=== PATIENT | female | born 1990 | race Caucasian/White ===

== ENCOUNTER 2016-11-25 11:21 | Emergency (ER) | payer BC ==
[~2016-11-25] VITALS: Ht 154.9 cm; Wt 60.7 kg
[2016-11-25 11:24] VITALS: TEMP 36.4; Ht 154.9 cm; Wt 60.7 kg
[2016-11-25] MEDS ORDERED: ONDANSETRON INJ 2 MG/ML 2 ML VIAL IV STA (12:25)
[2016-11-25] MEDS ORDERED: SODIUM CHLORIDE 0.9% 1000ML 1,000 ML IV STA (12:25)
[2016-11-25] MEDS ORDERED: SERT50TA PO (12:43)
[2016-11-25] MEDS ORDERED: BCPILLS PO (12:43)
[2016-11-25 12:45] VITALS: O2SAT 98
[2016-11-25 12:59] LABS: BASO % 0.2 %; BASO ABS # 0.02 K/uL (0-0.2); COMPLETE YES; EOS % 0.3 %; HEMATOCRIT 41.9 % (37-47); IG% 0.2 %; LYMPH % 14.9 %; LYMPH ABS # 1.69 K/uL (1.2-3.4); MEAN CELL VOLUME 86.4 fL (80-100); MEAN CORPUSCULAR HEMOGLOBIN 29.7 pg (25-34); MEAN CORPUSCULAR HGB CONC 34.4 g/dl (32-36); MEAN PLATELET VOLUME 10.1 fL (7.4-10.4); MONO % 2.8 %; NEUT % 81.6 %; PLATELET COUNT 280 K/uL (130-400); RED BLOOD COUNT 4.85 M/uL (4.2-5.4); WHITE BLOOD COUNT 11.31 K/uL (4.8-10.8)
[2016-11-25 13:08] LABS: PROTHROMBIN TIME (PATIENT) 10.7 SECONDS (9.0-12.0)
[2016-11-25 13:17] LABS: BUN/CREATININE RATIO 21.5 (10-20); CALCIUM 8.1 mg/dl (8.5-10.1); CREATININE 0.62 mg/dl (0.60-1.20); POTASSIUM 3.9 mmol/L (3.5-5.1)
[2016-11-25 13:27] LABS: THYROID STIMULATING HORMONE 0.71 uIu/ml (0.300-4.500)
[2016-11-25 13:28] LABS: PREG INTERNAL NEGATIVE QC NEG CLEAR BACKGROUND; PREG INTERNAL POSITIVE QC POS CONTROL LINE
[2016-11-25 13:59] VITALS: BP 110/64; PULSE 84; O2SAT 98
[2016-11-25 14:02] LABS: LYME DISEASE AB IGG NEG (NEG); LYME DISEASE AB IGM NEG (NEG)
[2016-11-25] MEDS ORDERED: ONDA4TAB10 SL (14:14)
--- NOTE | 2016-11-25 19:43 | EMERGENCY ROOM VISIT NOTE ---
History Report prepared by Meg: Lilli Sanchez Under the Supervision of: Dr. Manuel Silva M.D. First contact with patient: 12:15 Chief Complaint: VOMITING Stated Complaint: VOMITING UP SOMETHING LOOKS LIKE TAPEWORM, NAUSEA Nursing Triage Summary: Pt reports she has not been feeling well for weeks. Last night she had [place] food with red wine and wasn't feeling well after. This morning she woke up and had diarrhea and then vomited what she thought was "a worm." Pt brought emesis with her and it appears to be undigested [place] food History of Present Illness The patient is a 26 year old female who presents to the Emergency Room with complaints of persistent dizziness over the past 3 weeks. The patient notes that nothing seems to make the dizziness better or worse. She also reports feeling fatigued and unlike herself. She was seen at [facility] for her symptoms in addition to a week of diarrhea and was supposed to have blood work, but hasn't gotten it yet. Yesterday, the patient slept all day and then went to eat [place] food with friends. She had a couple of glasses of wine at dinner as well, but left early because she was not feeling well. This morning, the patient had an episode of diarrhea. She also had several episodes of dry heaving. During one episode of dry heaving, a worm-appearing particle came up. The patient is concerned that this could be some type of worm although it could also be a maldonado sprout. There was also some blood that came up during her episodes of dry heaving. The patient has had some cold-like symptoms over the past week or so. She has noticed small amounts of blood coming out of her mouth when coughing and out of her nose when she blows her nose. Over the past year, the patient has had intermittent episodes of shortness of breath which seem to occur when she is under stress and anxious. She had her thyroid function tested this summer which was normal. She has not had any episodes of shortness of breath since her fatigue and dizziness stated 3 weeks ago. She has not had any recent foreign travel. Denies drinking stream water. Denies fever, chest pain, tick bites, rashes, or other complaints. The patient does not get menstrual periods often due to her control pill, which she has consulted with her commercial property manager about. She is sexually active but does not believe that she is . She has not had a test. Source of History: patient Onset: 3 weeks ago Position: other (global) Quality: other (dizzness) Timing: other (persistent) Modifying Factors (Worsening): other (none) Modifying Factors (Relieving): other (none) Associated Symptoms: + SOB, + diarrhea, + fatigue, + vomiting, No chest pain , No fevers, No rash Review of Systems See HPI for pertinent positives & negatives. A total of 10 systems reviewed and were otherwise negative. Past Medical & Surgical Medical Problems: (1) No Known Active Medical Problems Family History Cancer Diabetes mellitus Heart disease Hypertension Lung disease Social History Smoking Status: Never Smoker Smokeless Tobacco Use: No Alcohol Use: occasionally Marital Status: single Housing Status: lives alone Occupation Status: [employer] student Current/Historical Medications Scheduled Control Pills ( Control Pills), 1 TAB PO DAILY Ondasetron Odt (Zofran Odt), 4 MG SL Q6H Sertraline (Zoloft), 50 MG PO DAILY Allergies Coded Allergies: No Known Allergies (Unverified , 11/25/16) Physical Exam Vital Signs Date Time Temp Pulse Resp B/P Pulse Ox O2 Delivery O2 Flow Rate FiO2 11/25/16 13:59 84 16 110/64 98 Room Air 11/25/16 13:27 81 11/25/16 12:45 98 Room Air 11/25/16 11:24 36.4 102 18 119/80 96 Room Air Physical Exam Constitutional: Vital signs reviewed. Eyes: Pupils are equal round reactive to light. Conjunctiva are noninjected. ENT: Pharynx is clear without erythema or exudate. Mucous membranes are dry. Neck supple without meningeal signs. No sinus tenderness. Respiratory: Clear to auscultation bilaterally. Breath sounds are equal bilaterally. Cardiovascular: Regular rate and rhythm. No rubs or gallops. GI: Soft, nondistended and nontender. Bowel sounds are present. Musculoskeletal: No peripheral edema. No lower extremity tenderness. Integumentary: No cyanosis. Neurological: The patient is awake and alert. No focal deficits. Psychiatric: Slightly anxious affect. Medical Decision & Procedures Laboratory Results 11/25/16 12:46 Red Blood Count 4.85, Mean Corpuscular Volume 86.4, Mean Corpuscular Hemoglobin 29.7, Mean Corpuscular Hemoglobin Concent 34.4, Mean Platelet Volume 10.1, Neutrophils (%) (Auto) 81.6, Lymphocytes (%) (Auto) 14.9, Monocytes (%) (Auto) 2.8, Eosinophils (%) (Auto) 0.3, Basophils (%) (Auto) 0.2, Neutrophils # (Auto) 9.23, Lymphocytes # (Auto) 1.69, Monocytes # (Auto) 0.32, Eosinophils # (Auto) 0.03, Basophils # (Auto) 0.02 11/25/16 12:46 Test 11/25/16 12:46 11/25/16 12:52 White Blood Count 11.31 K/uL (4.8-10.8) Red Blood Count 4.85 M/uL (4.2-5.4) Hemoglobin 14.4 g/dL (12.0-16.0) Hematocrit 41.9 % (37-47) Mean Corpuscular Volume 86.4 fL (80-100) Mean Corpuscular Hemoglobin 29.7 pg (25-34) Mean Corpuscular Hemoglobin Concent 34.4 g/dl (32-36) Platelet Count 280 K/uL (130-400) Mean Platelet Volume 10.1 fL (7.4-10.4) Neutrophils (%) (Auto) 81.6 % Lymphocytes (%) (Auto) 14.9 % Monocytes (%) (Auto) 2.8 % Eosinophils (%) (Auto) 0.3 % Basophils (%) (Auto) 0.2 % Neutrophils # (Auto) 9.23 K/uL (1.4-6.5) Lymphocytes # (Auto) 1.69 K/uL (1.2-3.4) Monocytes # (Auto) 0.32 K/uL (0.11-0.59) Eosinophils # (Auto) 0.03 K/uL (0-0.5) Basophils # (Auto) 0.02 K/uL (0-0.2) RDW Standard Deviation 36.6 fL (36.4-46.3) RDW Coefficient of Variation 11.6 % (11.5-14.5) Immature Granulocyte % (Auto) 0.2 % Immature Granulocyte # (Auto) 0.02 K/uL (0.00-0.02) Prothrombin Time 10.7 SECONDS (9.0-12.0) Prothromb Time International Ratio 1.0 (0.9-1.1) Activated Partial Thromboplast Time 25.9 SECONDS (21.0-31.0) Partial Thromboplastin Ratio 1.0 Anion Gap 10.0 mmol/L (3-11) Est Creatinine Clear Calc Drug Dose 115.9 ml/min Estimated GFR () 145.3 Estimated GFR (Non- 125.3 BUN/Creatinine Ratio 21.5 (10-20) Calcium Level 8.1 mg/dl (8.5-10.1) Total Bilirubin 0.3 mg/dl (0.2-1) Direct Bilirubin 0.1 mg/dl (0-0.2) Aspartate Amino Transf (AST/SGOT) 16 U/L (15-37) Alanine Aminotransferase (ALT/SGPT) 23 U/L (12-78) Alkaline Phosphatase 58 U/L (45-117) Total Protein 7.7 gm/dl (6.4-8.2) Albumin 3.8 gm/dl (3.4-5.0) Thyroid Stimulating Hormone (TSH) 0.710 uIu/ml (0.300-4.500) Free Thyroxine 0.92 ng/dl (0.80-1.60) Human Chorionic Gonadotropin, Qual NEG (NEG) Lyme Disease IgG Antibody NEG (NEG) Lyme Disease IgM Antibody NEG (NEG) Monoscreen NEG (NEG) Bedside D-Dimer 144 ng/mlFEU (0-450) Laboratory results as reviewed by me. Medications Administered Medications (Trade) Dose Ordered Sig/Azalia Route Start Time Stop Time Status Last Admin Dose Admin Sodium Chloride (Nss 1000ml) 1,000 ml @ 999 mls/hr Q1H1M STAT IV 11/25/16 12:25 11/25/16 13:25 DC 11/25/16 13:17 999 MLS/HR Ondansetron HCl (Zofran Inj) 4 mg NOW STAT IV 11/25/16 12:25 11/25/16 12:28 DC 11/25/16 13:17 4 MG ECG Indication: other (dizziness) Rate (beats per minute): 65 Rhythm: normal sinus Findings: no acute ischemic change, no ectopy, other (rightward axis) ED Course 1218: The patient was evaluated in room B12. A complete history and physical exam was performed. 1225: Ordered Zofran 4 mg IV, NSS 1000 ml @ 999 mls/hr IV. 1354: I reassessed the patient and talked to her about test results. She said that she is feeling better after the Zofran and fluids. The patient will be discharged home. Medical Decision This is a 26-year-old female who presents with generalized weakness for 3 weeks and developed vomiting and diarrhea last night. Differential diagnosis includes metabolic derangement, anemia, hypothyroidism, dehydration, gastroenteritis. I did perform a limited focused review of portions of the patient's old chart on the electronic medical record. The patient has had no recent pertinent visits to this hospital. I did evaluate the patient as noted above. The patient has had 3 weeks of generalized weakness. It is unclear what is causing these symptoms. She denies having any chest pain but does have some shortness of breath which she attributes to anxiety. The shortness of breath has been sporadic for 6 months. She also complains of vomiting up what looks like a warm. I did examine what she threw up under magnification and it appears to be an undigested maldonado sprout. IV access was established. I did order and personally review the patient's 12-lead EKG as described above. I did order and review the patient's blood work as noted in the electronic medical record. Her white blood cell count is slightly elevated likely secondary to the vomiting. She is not anemic. TFTs are unremarkable. D-dimer testing is negative. I did have a low pretest probability for PE and therefore I will not pursue this further with a negative d-dimer. Lyme Testing was negative.Monospot is negative. I did treat the patient with normal saline IV and Zofran IV. I did reassess the patient. She is feeling better at this time. I did discuss the test results with her. I did recommend she follow with [facility] for further evaluation of her generalized weakness. Her vomiting and diarrhea are likely a viral gastroenteritis. She was discharged with a prescription for Zofran and given return instructions as outlined below. Impression Primary Impression: Vomiting and diarrhea Additional Impressions: Dizziness URI (upper respiratory infection) Departure Information Dispostion Home / Self-Care Prescriptions Ondasetron Odt (ZOFRAN ODT) 4 Mg Tab 4 MG SL Q6H for Nausea, #10 TAB Prov: Manuel Silva M.D. 11/25/16 Referrals No Doctor, Assigned (PCP) Patient Instructions ED Dizziness [facility], ED Vomiting Diarrhea Nonspecific Ad, My [facility] Additional Instructions You have been examined and treated today on an emergency basis only. This is not a substitute for, or an effort to provide, complete comprehensive medical care. It is impossible to recognize and treat all injuries or illnesses in a single emergency department visit. It is therefore important that you follow up closely with your physician. Call as soon as possible for an appointment. Return for worsening symptoms or if you develop fever, abdominal pain, chest pain or any other concerning symptoms. Problem Qualifiers Additional Impressions: URI (upper respiratory infection) URI type: unspecified URI Qualified Codes: J06.9 - Acute upper respiratory infection, unspecified
== END 2016-11-25 14:23 | disposition home or self-care (01) ==
LOC: C.EDB 11:22
DX: R11.10 Vomiting, unspecified (principal); R19.7 Diarrhea, unspecified; R42 Dizziness and giddiness; J06.9 Acute upper respiratory infection, unspecified; R53.1 Weakness; Z79.899 Other long term (current) drug therapy; Z83.3 Family history of diabetes mellitus; Z82.49 Family history of ischemic heart disease and other diseases of the circulatory system